=== PATIENT | female | born 1970 | race Hispanic/Latino ===

== ENCOUNTER → 2019-11-08 | Day surgery (SDC) | payer OTHER ==
[~2019-11-08] MED LIST: BUPIVACAINE 0.5%/EPI 30 ML SDV INJ ONE; CEFAZOLIN SOD 1 GM/NS 50ML 100 ML IV ONE; EUTHYROX125 MCG PO; KETOROLAC TROMETHAMINE 30 MG/ML VIAL ONE; LIDOCAINE HCL 2% JELLY 5 ML TUBE ONE; LIDOCAINE HCL 2% LOCAL INJ 5 ML SDV VIAL INJ ONE; MYCOPHENOLATE250 MG PO; PROPOFOL IV EMULSION 10 MG/ML 20 ML VIAL ONE; SEVOFLURANE INHAL SOLN 250 ML PEN BTL ONE
[2019-11-08 13:50] VITALS: BP 106/87
--- NOTE | 2019-11-13 15:49 | Operative Report ---
DATE OF PROCEDURE: 11/08/2019 SURGEON: Sourav Garcia MD PREOPERATIVE DIAGNOSES: 1. Right knee medial meniscus tear. 2. Right knee degenerative joint disease of the knee. POSTOPERATIVE DIAGNOSES: 1. Right knee medial meniscus tear. 2. Right knee degenerative joint disease of the knee. OPERATIONS AND PROCEDURES PERFORMED: The patient underwent right knee examination under anesthesia, right knee arthroscopy, right knee partial medial meniscectomy, right knee chondroplasty of the patella, trochlea, the medial femoral condyle, the medial tibial plateau, the lateral femoral condyle, and lateral tibial plateau. AUTOMOTIVE PROFESSIONAL: There was no assistant case manager. ANESTHESIA: General endotracheal intubation anesthesia. IV FLUIDS: As per the anesthesia record. BRIEF DESCRIPTION OF THE PATIENT'S OPERATIVE PROCEDURE: Ms. Melton was taken to the operating room and placed in supine position on the operating table. Following induction of general anesthesia as well as endotracheal intubation, the patient's right lower extremity was examined under anesthesia. She was found to have a mild effusion with the knee joint, but otherwise ligamentously stable knee. The patient's lower extremity was prepped and draped in standard surgical fashion. A two-port technique used to provide this patient arthroscopic evaluation of the knee joint. Examination of suprapatellar pouch, medial and lateral gutters were found no evidence of loose bodies. There was, however, evidence of chondromalacia of the patella and trochlear surfaces. The scope was then advanced into the medial compartment. Examination of medial compartment again demonstrated chondromalacia of the medial femoral condyle and medial tibial plateau. There was a complex tear of the posterior horn and root of the medial meniscus. A portion of the medial meniscus was clipped posteriorly out of the knee joint. A probe was used to reduce this portion of meniscus back into the knee. A combination of biting forceps and motorized shaver were then used to resect the torn portion of meniscus. Chondroplasties of the medial femoral condyle and medial tibial plateau performed at this time. Scope was then advanced to the intercondylar notch and the anterior cruciate ligament was identified, and found to be intact. Scope was advanced to lateral compartment and there was chondromalacia of the articulating surfaces. A shaver was used to provide a chondroplasty breach of the surfaces. We then placed in suprapatellar pouch. A chondroplasty of the patella and trochlea was performed. The knee was then deflated with sterile normal saline. Each of the portal sites were closed using 4-0 nylon suture. The portal sites as well as knee itself were injected with 0.5% Marcaine with epinephrine. Sterile dressings were applied. The patient was then awakened and taken to Postanesthesia Care Unit in stable condition. MD NIKOLE Ruiz/ETHAN /[id number]
== END | disposition home or self-care (01) ==
LOC: OR 10:00
PROVIDERS: ATTEND Specialist
DX: S83.231A Complex tear of medial meniscus, current injury, right knee, initial encounter (principal); E05.90 Thyrotoxicosis, unspecified without thyrotoxic crisis or storm; M17.11 Unilateral primary osteoarthritis, right knee; M22.41 Chondromalacia patellae, right knee; G70.00 Myasthenia gravis without (acute) exacerbation; R00.1 Bradycardia, unspecified; X58.XXXA Exposure to other specified factors, initial encounter; Z01.810 Encounter for preprocedural cardiovascular examination; Z01.812 Encounter for preprocedural laboratory examination; Z11.59 Encounter for screening for other viral diseases
CPT/HCPCS: 29881; 81025; 93005; J0690; J1885; J2001 ×2; J2704; U0002